=== PATIENT | female | born 1945 | race Caucasian/White ===

== ENCOUNTER 2019-04-28 13:03 | Emergency (ER) | payer MEDICARE, MEDICAID ==
[2019-04-28 13:56] VITALS: BP 147/80
--- NOTE | 2019-04-28 13:58 | EDM.PDOC ---
ED HPI GENERAL MEDICAL PROBLEM - General Chief Complaint: Respiratory Problem Stated Complaint: BREATHING PROBLEMS FOR PAST SEVERAL DAYS Time Seen by Provider: 04/28/19 13:53 Source of Information: Reports: Patient, Family History Limitations: Reports: No Limitations - History of Present Illness INITIAL COMMENTS - FREE TEXT/NARRATIVE: pt arrived feeling tight accross her chest. She has been wheezing. She is bringingup green sputum. She has an inhaler which she has not used tioday. Onset: Gradual, Other (last 2-3 days. ) Duration: Hour(s): Location: Reports: Chest Associated Symptoms: Reports: Cough, Malaise, Shortness of Breath, Other ( chest tightness) - Related Data Allergies Allergy/AdvReac Type Severity Reaction Status Date / Time No Known Allergies Allergy Verified 04/28/19 13:34 Home Meds: Home Meds Albuterol [Ventolin HFA] 2 puff INH ASDIRECTED 04/28/19 [History] Past Medical History HEENT History: Reports: Allergic Rhinitis, Cataract, Sinusitis Respiratory History: Reports: Asthma, Bronchitis, Recurrent, Pneumonia, Recurrent DENTAL TREATMENT COORDINATOR History: Reports: Endometriosis Musculoskeletal History: Reports: Fracture - Infectious Disease History Infectious Disease History: Reports: Chicken Pox, Measles, Mumps - Past Surgical History HEENT Surgical History: Reports: Adenoidectomy, Cataract Surgery, Oral Surgery, Tonsillectomy Other HEENT Surgeries/Procedures: dentures GI Surgical History: Reports: Appendectomy Female Surgical History: Reports: Hysterectomy Musculoskeletal Surgical History: Reports: Other (See Below) Other Musculoskeletal Surgeries/Procedures:: partial left knee replacement Social & Family History - Tobacco Use Smoking Status *Q: Current Every Day Smoker Years of Tobacco use: 56 Packs/Tins Daily: 1 Second Hand Smoke Exposure: No - Caffeine Use Caffeine Use: Reports: Coffee - Recreational Drug Use Recreational Drug Use: No ED ROS GENERAL - Review of Systems Review Of Systems: See Below Constitutional: Reports: Weakness, Other ( chest pressure.) HEENT: Reports: No Symptoms Respiratory: Reports: Shortness of Breath, Wheezing, Cough, Sputum Cardiovascular: Reports: Other (pt is feeling heavy in the chest. ) Endocrine: Reports: No Symptoms GI/Abdominal: Reports: No Symptoms : Reports: No Symptoms Musculoskeletal: Reports: No Symptoms Skin: Reports: No Symptoms Neurological: Reports: No Symptoms Psychiatric: Reports: No Symptoms ED EXAM, GENERAL - Physical Exam Exam: See Below Free Text/Narrative:: pt arrived feeling tight in her chest. She was wheezing. She has felt sob. Sheis raising green sputum. Exam Limited By: No Limitations General Appearance: Alert, Anxious, Moderate Distress, Other (pupils are equal and reactive. ) Ears: Normal TMs Nose: Normal Inspection Throat/Mouth: Normal Inspection Head: Atraumatic Neck: Normal Inspection Respiratory/Chest: Decreased Breath Sounds, Wheezing Cardiovascular: Regular Rate, Rhythm GI/Abdominal: Soft, Non-Tender (Female) Exam: Deferred Rectal (Female) Exam: Deferred Back Exam: Normal Inspection Extremities: Normal Inspection Course - Vital Signs Last Recorded V/S: Last Vital Signs Temp 36.1 C 04/28/19 13:15 Pulse 103 H 04/28/19 13:15 Resp 16 04/28/19 13:15 BP 147/80 H 04/28/19 13:15 Pulse Ox 94 L 04/28/19 13:15 - Orders/Labs/Meds Orders: Active Orders 24 hr Category Date Time Status EKG Documentation Completion [RC] ASDIRECTED Care 04/28/19 13:58 Active RT Aerosol Therapy [RC] ASDIRECTED Care 04/28/19 14:00 Active EKG 12 Lead [EK] Routine Ther 04/28/19 13:58 Ordered Labs: Laboratory Tests 04/28/19 04/28/19 04/28/19 Range/Units 13:49 13:49 13:49 WBC 9.2 (4.5-11.0) K/uL RBC 5.16 (3.30-5.50) M/uL Hgb 15.9 H (12.0-15.0) g/dL Hct 48.0 (36.0-48.0) % MCV 93 (80-98) fL MCH 31 (27-31) pg MCHC 33 (32-36) % Plt Count 181 (150-400) K/uL Neut % (Auto) 45 (36-66) % Lymph % (Auto) 31 (24-44) % [place] % (Auto) 7 H (2-6) % Eos % (Auto) 16 H (2-4) % Baso % (Auto) 1 (0-1) % Sodium 141 (140-148) mmol/L Potassium 4.1 (3.6-5.2) mmol/L Chloride 106 (100-108) mmol/L Carbon Dioxide 27 (21-32) mmol/L Anion Gap 8.1 (5.0-14.0) mmol/L BUN 15 (7-18) mg/dL Creatinine 1.2 H (0.6-1.0) mg/dL Est Cr Clr Drug Dosing TNP Estimated GFR (MDRD) 44 L (>60) Glucose 135 H (74-106) mg/dL Calcium 9.6 (8.5-10.1) mg/dL Total Bilirubin 0.3 (0.2-1.0) mg/dL AST 41 H (15-37) U/L ALT 31 (12-78) U/L Alkaline Phosphatase 92 (46-116) U/L Troponin I < 0.017 (0.000-0.056) ng/mL C-Reactive Protein (0.0-0.3) mg/dL Total Protein 7.1 (6.4-8.2) g/dL Albumin 3.3 L (3.4-5.0) g/dL Globulin 3.8 H (2.3-3.5) g/dL Albumin/Globulin Ratio 0.9 L (1.2-2.2) Urine Color Urine Appearance Urine pH (4.5-8.0) Ur Specific [place] (1.008-1.030) Urine Protein (NEGATIVE) mg/dL Urine Glucose (UA) (NEGATIVE) mg/dL Urine Ketones (NEGATIVE) mg/dL Urine Occult Blood (NEGATIVE) Urine Nitrite (NEGATIVE) Urine Bilirubin (NEGATIVE) Urine Urobilinogen (NORMAL) mg/dL Ur Leukocyte Esterase (NEGATIVE) Urine RBC (0-5) Urine WBC (0-5) Ur Epithelial Cells Amorphous Sediment Urine Bacteria Urine Mucus 04/28/19 04/28/19 Range/Units 14:03 14:05 WBC (4.5-11.0) K/uL RBC (3.30-5.50) M/uL Hgb (12.0-15.0) g/dL Hct (36.0-48.0) % MCV (80-98) fL MCH (27-31) pg MCHC (32-36) % Plt Count (150-400) K/uL Neut % (Auto) (36-66) % Lymph % (Auto) (24-44) % [place] % (Auto) (2-6) % Eos % (Auto) (2-4) % Baso % (Auto) (0-1) % Sodium (140-148) mmol/L Potassium (3.6-5.2) mmol/L Chloride (100-108) mmol/L Carbon Dioxide (21-32) mmol/L Anion Gap (5.0-14.0) mmol/L BUN (7-18) mg/dL Creatinine (0.6-1.0) mg/dL Est Cr Clr Drug Dosing Estimated GFR (MDRD) (>60) Glucose (74-106) mg/dL Calcium (8.5-10.1) mg/dL Total Bilirubin (0.2-1.0) mg/dL AST (15-37) U/L ALT (12-78) U/L Alkaline Phosphatase (46-116) U/L Troponin I (0.000-0.056) ng/mL C-Reactive Protein 0.51 H (0.0-0.3) mg/dL Total Protein (6.4-8.2) g/dL Albumin (3.4-5.0) g/dL Globulin (2.3-3.5) g/dL Albumin/Globulin Ratio (1.2-2.2) Urine Color Yellow Urine Appearance Clear Urine pH 5.0 (4.5-8.0) Ur Specific [place] 1.015 (1.008-1.030) Urine Protein Negative (NEGATIVE) mg/dL Urine Glucose (UA) Normal (NEGATIVE) mg/dL Urine Ketones Negative (NEGATIVE) mg/dL Urine Occult Blood Negative (NEGATIVE) Urine Nitrite Negative (NEGATIVE) Urine Bilirubin Negative (NEGATIVE) Urine Urobilinogen Normal (NORMAL) mg/dL Ur Leukocyte Esterase Negative (NEGATIVE) Urine RBC Not seen (0-5) Urine WBC 0-5 (0-5) Ur Epithelial Cells Few Amorphous Sediment Not seen Urine Bacteria Moderate Urine Mucus Not seen Meds: Medications Discontinued Medications Generic Name Dose Route Start Last Admin Trade Name Freq PRN Reason Stop Dose Admin Albuterol 2.5 mg 04/28/19 14:00 04/28/19 14:45 Proventil Neb Soln NEB 04/28/19 14:01 2.5 mg ONETIME ONE Administration - Re-Assessments/Exams Free Text/Narrative Re-Assessment/Exam: 04/28/19 15:05 wbc is not elevated. She does have alot of eosinophils. Pt does not have a fever. She is raising green sputum. She was given a albuterol neb and the tightness is better and she is less wheezy. Pt was given kenalog 60mg im, her chest xray did not show a pneumonia. [facility] have a neb machine home with her. Departure - Departure Time of Disposition: 15:07 Disposition: Home, Self-Care 01 Condition: Fair Clinical Impression: Bronchitis, Environmental allergies - Discharge Information Referrals: PCP,None [Primary Care Provider] - Forms: ED Department Discharge Care Plan Goals: use albuterol neb q 6h for wheezing, push fluids, zithromax, 500mg now and then 250 for the next 6 days. - My Orders Last 24 Hours: My Active Orders 04/28/19 13:58 EKG Documentation Completion [RC] ASDIRECTED EKG 12 Lead [EK] Routine 04/28/19 14:00 RT Aerosol Therapy [RC] ASDIRECTED - Assessment/Plan Last 24 Hours: My Active Orders 04/28/19 13:58 EKG Documentation Completion [RC] ASDIRECTED EKG 12 Lead [EK] Routine 04/28/19 14:00 RT Aerosol Therapy [RC] ASDIRECTED
[2019-04-28] MEDS ORDERED: Albuterol 0.083% 2.5 MG/3 ML Neb Soln NEB ONE (14:00)
--- NOTE | 2019-04-28 14:24 | CRLCR ---
INDICATION: Shortness of breath. TECHNIQUE: PA and lateral chest. COMPARISON: None. FINDINGS: Clear lungs. Normal heart size and pulmonary vascularity. No congestive heart failure. No pleural effusions. The included skeleton is unremarkable. IMPRESSION: No acute cardiopulmonary process identified. Dictated by Flavio Waggoner MD @ Apr 28 2019 2:21PM Signed by Dr. Flavio Waggoner @ Apr 28 2019 2:21PM
[2019-04-28] MEDS ORDERED: Triamcinolone Acetonide 40 MG/ML 1 ML MDV INJECT ONE (14:59)
== END 2019-04-28 15:19 | disposition home or self-care (01) ==
LOC: JP.ED 13:03
DX: J40 Bronchitis, not specified as acute or chronic (principal); F17.210 Nicotine dependence, cigarettes, uncomplicated; Z91.09 Other allergy status, other than to drugs and biological substances
CPT/HCPCS: 36415; 71046; 80053; 81001; 84484; 85025; 86140; 93005; 93010; 94640; 99285; J3301

== ENCOUNTER 2020-06-14 17:05 | Emergency (ER) | payer MEDICARE, MEDICAID ==
[2020-06-14 18:16] VITALS: BP 132/72; PULSE 85
--- NOTE | 2020-06-14 18:29 | EDM.PDOC ---
ED HPI GENERAL MEDICAL PROBLEM - General Chief Complaint: Allergic Reaction Stated Complaint: ALLERGIC REACTION Time Seen by Provider: 06/14/20 17:10 Source of Information: Reports: Patient, RN Notes Reviewed History Limitations: Reports: No Limitations - History of Present Illness INITIAL COMMENTS - FREE TEXT/NARRATIVE: 75-year-old female presents emergency department a complaint of allergic reaction, she states she is recent diagnosed with a sinus infection was started on Augmentin she has taken amoxicillin and penicillin for several years without difficulty however this is the first time she is ever used Augmentin. She is only taken 1 dose approximately 5 hours after taking the dose she noticed 1 red area on her arm and had an upset stomach. She has not taken any more the medication. At this time she feels her stomach is back to normal no difficulty breathing no difficulty swallowing - Related Data Allergies Allergy/AdvReac Type Severity Reaction Status Date / Time amoxicillin [From Augmentin] AdvReac Abdominal Verified 06/14/20 18:24 Pain clavulanic acid AdvReac Abdominal Verified 06/14/20 18:24 [From Augmentin] Pain Home Meds: Home Meds Albuterol [Ventolin HFA] 2 puff INH ASDIRECTED 04/28/19 [History] Amoxicillin/Clavulanate K [Augmentin 875-125 MG] 1 tab PO BID 06/14/20 [History] Fluticasone Propionate [Flonase] 2 sprays NASBOTH BID PRN 06/14/20 [History] diphenhydrAMINE [Benadryl] 25 mg PO Q6H PRN 06/14/20 [History] Past Medical History HEENT History: Reports: Allergic Rhinitis, Cataract, Sinusitis Respiratory History: Reports: Asthma, Bronchitis, Recurrent, Pneumonia, Recurrent ACADEMY DIRECTOR History: Reports: Endometriosis Musculoskeletal History: Reports: Fracture - Infectious Disease History Infectious Disease History: Reports: Chicken Pox, Measles, Mumps - Past Surgical History HEENT Surgical History: Reports: Adenoidectomy, Cataract Surgery, Oral Surgery, Tonsillectomy Other HEENT Surgeries/Procedures: dentures GI Surgical History: Reports: Appendectomy Female Surgical History: Reports: Hysterectomy Neurological Surgical History: Reports: Laminectomy, Spinal Fusion Musculoskeletal Surgical History: Reports: Other (See Below) Other Musculoskeletal Surgeries/Procedures:: partial left knee replacement Social & Family History - Tobacco Use Smoking Status *Q: Current Every Day Smoker Years of Tobacco use: 60 Packs/Tins Daily: 1 - Caffeine Use Caffeine Use: Reports: Coffee - Recreational Drug Use Recreational Drug Use: No ED ROS ALLERGIC REACTION - Review of Systems Review Of Systems: See Below Constitutional: Reports: No Symptoms HEENT: Reports: No Symptoms Respiratory: Reports: No Symptoms Cardiovascular: Reports: No Symptoms GI/Abdominal: Reports: Abdominal Pain : Reports: No Symptoms Skin: Reports: Urticaria ED EXAM GENERAL NO PERIP PULSE - Physical Exam Exam: See Below Exam Limited By: No Limitations General Appearance: Alert, WD/WN, No Apparent Distress Throat/Mouth: Normal Inspection, Normal Lips, Normal Teeth, Normal Gums, Normal Oropharynx, Normal Voice, No Airway Compromise Neck: Normal Inspection, Supple, Non-Tender, Full Range of Motion Respiratory/Chest: No Respiratory Distress, Lungs Clear, Normal Breath Sounds, No Accessory Muscle Use, Chest Non-Tender Cardiovascular: Regular Rate, Rhythm, No Murmur Skin Exam: Warm, Dry, Intact, Normal Color, No Rash Course - Vital Signs Last Recorded V/S: Last Vital Signs Temp 98.1 F 06/14/20 18:14 Pulse 85 06/14/20 18:14 Resp 18 06/14/20 18:14 BP 132/72 06/14/20 18:14 Pulse Ox 95 06/14/20 18:14 Departure - Departure Time of Disposition: 18:29 Disposition: Home, Self-Care 01 Condition: Fair Clinical Impression: Drug intolerance - Discharge Information Referrals: Vasyl Mora MD [Primary Care Provider] - Additional Instructions: Please follow-up with your primary care provider tomorrow for further evaluation, call return to the emergency department worsening of symptoms, recommend discontinuing the Augmentin Sepsis Event Note (ED) - Evaluation Sepsis Screening Result: No Definite Risk - Focused Exam Vital Signs: Vital Signs Temp Pulse Resp BP Pulse Ox 06/14/20 18:14 98.1 F 85 18 132/72 95 - Assessment/Plan Plan: Assessment Acuity = acute Site and laterality = drug intolerance Etiology = Augmentin Manifestations = upset stomach now resolved Location of injury = Home Lab values = none Plan She will stop the Augmentin she is going contact her primary care tomorrow for further evaluation and possible retreatment she does have a consult set up with [facility] for chronic sinusitis This note was dictated using dragon voice recognition software please call with any questions on syntax or grammar.
== END 2020-06-14 18:38 | disposition home or self-care (01) ==
LOC: JP.ED 17:05
DX: K30 Functional dyspepsia (principal); J45.909 Unspecified asthma, uncomplicated; F17.210 Nicotine dependence, cigarettes, uncomplicated; T36.0X5A Adverse effect of penicillins, initial encounter; Z88.1 Allergy status to other antibiotic agents
CPT/HCPCS: 99283

== ENCOUNTER 2021-01-22 03:08 | Emergency (ER) | payer MEDICARE, MEDICAID ==
[2021-01-22 03:45] VITALS: BP 152/82; PULSE 91
[2021-01-22] MEDS ORDERED: Ketorolac 30 MG/ML SDV IM ONE (03:46)
--- NOTE | 2021-01-22 03:48 | EDM.PDOC ---
ED HPI GENERAL MEDICAL PROBLEM - General Chief Complaint: Lower Extremity Injury/Pain Stated Complaint: R SCIATIA NERVE PAIN Time Seen by Provider: 01/22/21 03:39 Source of Information: Reports: Patient, Old Records, RN Notes Reviewed History Limitations: Reports: No Limitations - History of Present Illness INITIAL COMMENTS - FREE TEXT/NARRATIVE: 75-year-old female presents emergency department day complaint of sciatic nerve pain on the right side, she has a history of chronic sciatica which is usually controlled with anti-inflammatories however the last 3 days she has been having a flareup and it is quite painful pain does shoot from her back down behind her right knee right hip Pain Score (Numeric/FACES): 8 - Related Data Allergies Allergy/AdvReac Type Severity Reaction Status Date / Time amoxicillin [From Augmentin] AdvReac Abdominal Verified 01/22/21 03:36 Pain clavulanic acid AdvReac Abdominal Verified 01/22/21 03:36 [From Augmentin] Pain Home Meds: Home Meds Albuterol [Ventolin HFA] 2 puff INH ASDIRECTED 04/28/19 [History] diphenhydrAMINE [Benadryl] 25 mg PO Q6H PRN 06/14/20 [History] Past Medical History HEENT History: Reports: Allergic Rhinitis, Cataract, Sinusitis Respiratory History: Reports: Asthma, Bronchitis, Recurrent, Pneumonia, Recurrent MANAGER INTENSIVE CARE History: Reports: Endometriosis Musculoskeletal History: Reports: Fracture Neurological History: Reports: Concussion - Infectious Disease History Infectious Disease History: Reports: Chicken Pox, Measles, Mumps - Past Surgical History HEENT Surgical History: Reports: Adenoidectomy, Cataract Surgery, Oral Surgery, Tonsillectomy, Other (See Below) Other HEENT Surgeries/Procedures: dentures. growth removed from sinuses GI Surgical History: Reports: Appendectomy Female Surgical History: Reports: Hysterectomy Neurological Surgical History: Reports: Laminectomy, Spinal Fusion Musculoskeletal Surgical History: Reports: Other (See Below) Other Musculoskeletal Surgeries/Procedures:: partial left knee replacement Social & Family History - Tobacco Use Tobacco Use Status *Q: Current Every Day Tobacco User Years of Tobacco use: 50 Packs/Tins Daily: 1 - Caffeine Use Caffeine Use: Reports: Coffee - Recreational Drug Use Recreational Drug Use: No Review of Systems - Review of Systems Review Of Systems: See Below Musculoskeletal: Reports: Leg Pain ED EXAM, GENERAL - Physical Exam Exam: See Below Exam Limited By: No Limitations General Appearance: Alert, WD/WN, No Apparent Distress Respiratory/Chest: No Respiratory Distress Extremities: Normal Inspection, Normal Range of Motion, Non-Tender, No Pedal Edema Course - Vital Signs Last Recorded V/S: Last Vital Signs Temp 97.7 F 01/22/21 03:45 Pulse 91 01/22/21 03:45 Resp 17 01/22/21 03:45 BP 152/82 H 01/22/21 03:45 Pulse Ox 94 L 01/22/21 03:45 - Orders/Labs/Meds Meds: Medications Discontinued Medications Generic Name Dose Route Start Last Admin Trade Name Jayson PRN Reason Stop Dose Admin Ketorolac Tromethamine 30 mg 01/22/21 03:46 01/22/21 03:53 Ketorolac 30 Mg/Ml Sdv IM 01/22/21 03:47 30 mg ONETIME ONE Administration Departure - Departure Time of Disposition: 04:22 Disposition: Home, Self-Care 01 Condition: Fair Clinical Impression: Right sciatic nerve pain - Discharge Information Instructions: Sciatica, [id number] Referrals: PCP,None [Primary Care Provider] - Forms: ED Department Discharge Additional Instructions: Continue with your regular medications, please followup with your primary care provider in 3-5 days if not better, please call return to the emergency department with worsening of symptoms. Sepsis Event Note (ED) - Evaluation Sepsis Screening Result: No Definite Risk - Focused Exam Vital Signs: Vital Signs Temp Pulse Resp BP Pulse Ox 01/22/21 03:45 97.7 F 91 17 152/82 H 94 L 01/22/21 03:44 97.7 F 91 17 152/82 H 94 L - Assessment/Plan Plan: Assessment Acuity = acute Site and laterality = right sciatic pain Etiology = unknown Manifestations = none Location of injury = Home Lab values = none Plan Good relief Toradol injection follow-up primary care as needed This note was dictated using [employer] voice recognition software please call with any questions on syntax or grammar.
== END 2021-01-22 04:29 | disposition home or self-care (01) ==
LOC: JP.ED 03:08
DX: M54.31 Sciatica, right side (principal); J45.909 Unspecified asthma, uncomplicated; Z72.0 Tobacco use; Z88.0 Allergy status to penicillin; Z88.1 Allergy status to other antibiotic agents
CPT/HCPCS: 96372; 99283; J1885

== ENCOUNTER 2021-08-06 17:05 | Emergency (ER) | payer MEDICARE, MEDICAID ==
--- NOTE | 2021-08-06 18:07 | EDM.PDOC ---
ED HPI GENERAL MEDICAL PROBLEM - General Chief Complaint: General Stated Complaint: PSYATIC NERVE PAIN Time Seen by Provider: 08/06/21 18:07 Source of Information: Reports: Patient, RN Notes Reviewed History Limitations: Reports: No Limitations - History of Present Illness INITIAL COMMENTS - FREE TEXT/NARRATIVE: Anu presents today for complaints of right sciatic pain that has flared for the past 2 weeks. She has tried OTC medications without any improvement. She states the pain is burning and goes from her right hip to the right foot. She denies numbness, tingling of the right leg or foot. She denies any recent injury, trauma, fever, chills, nausea, vomiting, change in bowel/bladder or other concerns. 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 growth removed from sinuses GI Surgical History: Reports: Appendectomy Female Surgical History: Reports: Hysterectomy Neurological Surgical History: Reports: Laminectomy, Spinal Fusion Musculoskeletal Surgical History: Reports: Other (See Below) Other Musculoskeletal Surgeries/Procedures:: partial left knee replacement Social & Family History - Tobacco Use Tobacco Use Status *Q: Current Every Day Tobacco User Years of Tobacco use: 55 Packs/Tins Daily: 1 - Caffeine Use Caffeine Use: Reports: Coffee - Recreational Drug Use Recreational Drug Use: No ED ROS GENERAL - Review of Systems Review Of Systems: See Below Constitutional: Reports: No Symptoms HEENT: Reports: No Symptoms Respiratory: Reports: No Symptoms Cardiovascular: Reports: No Symptoms Endocrine: Reports: No Symptoms GI/Abdominal: Reports: No Symptoms : Reports: No Symptoms Musculoskeletal: Reports: Other (right buttock pain radiating to the right foot, burning. No numbness or tingling. ) Skin: Reports: No Symptoms Neurological: Denies: Difficulty Walking, Weakness, Gait Disturbance Psychiatric: Reports: No Symptoms Hematologic/Lymphatic: Reports: No Symptoms Immunologic: Reports: No Symptoms ED EXAM, GENERAL - Physical Exam Exam: See Below Exam Limited By: No Limitations General Appearance: Alert, WD/WN, No Apparent Distress Head: Atraumatic, Normocephalic Neck: Normal Inspection, Supple, Non-Tender, Full Range of Motion. No: Lymphadenopathy (R), Lymphadenopathy (L) Respiratory/Chest: No Respiratory Distress, Lungs Clear, Normal Breath Sounds, No Accessory Muscle Use, Chest Non-Tender. No: Crackles, Rales, Rhonchi, Wheezing, Stridor Cardiovascular: Normal Peripheral Pulses, Regular Rate, Rhythm, No Edema, No Gallop, No Murmur, No Rub Peripheral Pulses: 4+: Dorsalis Pedis (L), Dorsalis Pedis (R) GI/Abdominal: Normal Bowel Sounds, Soft, Non-Tender, No Organomegaly, No Distention, No Mass, Pelvis Stable. No: Guarding, Rigid, Rebound, Tender Back Exam: Full Range of Motion, Muscle Spasm (upper bilateral trapezius and low lumbar area). No: CVA Tenderness (R), CVA Tenderness (L) Extremities: Normal Inspection, Normal Range of Motion, Non-Tender, No Pedal Edema, Normal Capillary Refill, Leg Pain (right leg) Neurological: Alert, Oriented, CN II-XII Intact, Normal Cognition, Normal Gait, Normal Reflexes, No Motor/Sensory Deficits Psychiatric: Normal Affect, Normal Mood Skin Exam: Warm, Dry, Intact, Normal Color, No Rash Lymphatic: No Adenopathy Course - Vital Signs Last Recorded V/S: Last Vital Signs Temp 36.2 C 08/06/21 17:58 Pulse 82 08/06/21 17:58 Resp 14 08/06/21 17:58 BP 123/62 08/06/21 17:58 Pulse Ox 93 L 08/06/21 17:58 - Orders/Labs/Meds Meds: Medications Discontinued Medications Generic Name Dose Route Start Last Admin Trade Name Freq PRN Reason Stop Dose Admin Ketorolac Tromethamine 30 mg 10/03/21 18:18 08/06/21 18:26 Ketorolac 30 Mg/Ml Sdv IM 08/06/21 18:19 30 mg ONETIME ONE Administration - Re-Assessments/Exams Free Text/Narrative Re-Assessment/Exam: Patient chart reviewed, noted use of toradol for last emergency room visit for sciatica. We will administer toradol 30mg IM. Departure - Departure Time of Disposition: 18:44 Disposition: Home, Self-Care 01 Condition: Good Clinical Impression: Right sided sciatica - Discharge Information *PRESCRIPTION DRUG MONITORING PROGRAM REVIEWED*: Not Applicable *COPY OF PRESCRIPTION DRUG MONITORING REPORT IN PATIENT JAMES: Not Applicable Instructions: Sciatica, [id number] Referrals: Vasyl Mora MD [Primary Care Provider] - Forms: ED Department Discharge Additional Instructions: You have been evaluated and treated for right sciatica from the hip to the right foot. You were given ketorolac 30mg as an IM injection for pain. You can work on stretching, yoga and follow up with your primary for any issues. You can take cyclobenzaprine (flexeril) 5mg by mouth up to three times a day as needed to help with pain. Return for any worsening, issues or concerns. Sepsis Event Note (ED) - Evaluation Sepsis Screening Result: No Definite Risk - Focused Exam Vital Signs: Vital Signs Temp Pulse Resp BP Pulse Ox 08/06/21 17:58 36.2 C 82 14 123/62 93 L 08/06/21 17:53 36.2 C 82 14 123/62 93 L - Assessment/Plan Assessment:: Right sided sciatica Plan: evaluated and treated for right sciatica from the hip to the right foot. You were given ketorolac 30mg as an IM injection for pain. You can work on stretching, yoga and follow up with your primary for any issues. You can take cyclobenzaprine (flexeril) 5mg by mouth up to three times a day as needed to help with pain. Return for any worsening, issues or concerns.
[2021-08-06] MEDS ORDERED: Ketorolac 30 MG/ML SDV IM ONE (18:18)
[2021-08-06 19:51] VITALS: BP 123/62; PULSE 82
== END 2021-08-06 18:47 | disposition home or self-care (01) ==
LOC: JP.ED 17:05
DX: M54.31 Sciatica, right side (principal); J45.909 Unspecified asthma, uncomplicated; Z72.0 Tobacco use; Z88.0 Allergy status to penicillin; Z88.1 Allergy status to other antibiotic agents
CPT/HCPCS: 96372; 99283; J1885

== ENCOUNTER 2021-11-27 09:49 | Inpatient (IN) | payer MEDICARE ==
[2021-11-27] MEDS ORDERED: Albuterol 8 GM Inhaler INH ONE (10:09)
[2021-11-27] MEDS ORDERED: methylPREDNISolone Sodium Succinate 125 MG/2 ML SDV IVPUSH ONE (10:09)
[2021-11-27] MEDS ORDERED: Magnesium Sulfate/Water 2 GM in Premix Bag 1 BAG IV ONE (10:10)
[2021-11-27] MEDS ORDERED: Morphine 2 MG/ML SYRINGE IVPUSH ONE (10:15)
[2021-11-27] MEDS ORDERED: LORazepam 2 MG/ML SDV IVPUSH ONE (11:42)
[2021-11-27 11:44] LABS: CORONAVIRUS COVID-19 NAA POSITIVE (NEGATIVE)
[2021-11-27] MEDS ORDERED: REMDESIVIR 200 MG in Sodium Chloride 0.9% 250 ML IV ONE (11:49)
[2021-11-27] MEDS: Sodium Chloride 0.9% 500 ML IV ONE ×2 (12:05→18:30)
[2021-11-27] MEDS ORDERED: Sodium Chloride 0.9% 100 ML IV SCH (12:15)
[2021-11-27] MEDS ORDERED: Iopamidol 755 Mg/ML 100 ML Bottle IV SCH (12:15)
[2021-11-27] MEDS ORDERED: Albuterol 8 GM Inhaler INH PRN (15:27)
[2021-11-27] MEDS ORDERED: Ondansetron 4 MG/2 ML SDV IV PRN (16:33)
[2021-11-27] MEDS ORDERED: Magnesium Hydroxide 400 MG/5 ML Susp 30 ML Cup PO PRN (16:33)
[2021-11-27] MEDS ORDERED: Ondansetron 4 MG Tab.DIS PO PRN (16:33)
[2021-11-27] MEDS ORDERED: LORazepam 2 MG/ML SDV IVPUSH PRN (16:33)
[2021-11-27] MEDS ORDERED: Morphine 2 MG/ML SYRINGE IVPUSH PRN (16:33)
[2021-11-27] MEDS ORDERED: Acetaminophen 325 MG Tab PO PRN (16:33)
[2021-11-27] MEDS: Enoxaparin 40 MG/0.4 ML Syringe SUBCUT SCH (18:31)
[2021-11-27] MEDS: Dexamethasone 4 MG/ML SDV IVPUSH SCH (20:12)
[2021-11-27] MEDS: Cholecalciferol (Vitamin D3) 25 MCG Tab PO SCH (20:15)
[2021-11-27] MEDS: guaiFENesin 600 MG Tab.ER PO SCH (20:15)
[2021-11-27] MEDS: Ascorbic Acid 500 MG Tab PO SCH (20:15)
[2021-11-27] MEDS: Melatonin 3 MG Tab PO PRN (21:22)
[2021-11-28] MEDS: guaiFENesin/Dextromethorphan 100-10 MG/5 ML Soln 10 ML Cup PO PRN ×4 (00:13→20:52)
[2021-11-28] MEDS: Benzonatate 100 MG Cap PO PRN ×4 (00:13→20:55)
[2021-11-28] MEDS: Enoxaparin 40 MG/0.4 ML Syringe SUBCUT SCH ×2 (05:49→17:38)
[2021-11-28] MEDS: Zinc Sulfate 220 MG Cap PO SCH (08:18)
[2021-11-28] MEDS: Ascorbic Acid 500 MG Tab PO SCH ×2 (08:18→20:49)
[2021-11-28] MEDS: guaiFENesin 600 MG Tab.ER PO SCH ×2 (08:18→20:48)
[2021-11-28] MEDS: Cholecalciferol (Vitamin D3) 25 MCG Tab PO SCH ×2 (08:18→20:49)
[2021-11-28] MEDS ORDERED: 50% Dextrose in Water 50 ML Syringe IVPUSH PRN (11:36)
[2021-11-28] MEDS ORDERED: Insulin Lispro 100 Unit/ML 3 ML KwikPen SUBCUT ONE (11:36)
[2021-11-28] MEDS ORDERED: Glucagon,Human Recombinant 1 MG Vial IM PRN (11:36)
[2021-11-28] MEDS: Insulin Lispro 100 Unit/ML 3 ML KwikPen SUBCUT SCH ×3 (11:39→21:08)
[2021-11-28] MEDS: LORazepam 0.5 MG Tab PO PRN (16:08)
[2021-11-28] MEDS: Dexamethasone 4 MG/ML SDV IVPUSH SCH (20:47)
[2021-11-28] MEDS: Melatonin 3 MG Tab PO PRN (20:54)
[2021-11-29] MEDS: Enoxaparin 40 MG/0.4 ML Syringe SUBCUT SCH ×2 (05:30→18:47)
[2021-11-29 06:20] LABS: HEMOGLOBIN A1C 10.1 % (4.5-6.2)
[2021-11-29] MEDS: Zinc Sulfate 220 MG Cap PO SCH (08:43)
[2021-11-29] MEDS: guaiFENesin 600 MG Tab.ER PO SCH ×2 (08:43→20:23)
[2021-11-29] MEDS: Cholecalciferol (Vitamin D3) 25 MCG Tab PO SCH ×2 (08:43→20:23)
[2021-11-29] MEDS: Insulin Lispro 100 Unit/ML 3 ML KwikPen SUBCUT SCH ×4 (08:44→21:16)
[2021-11-29] MEDS: Ascorbic Acid 500 MG Tab PO SCH ×2 (08:44→20:22)
[2021-11-29] MEDS: Nicotine 21 MG/24 Hr Patch TRDERM SCH (09:55)
[2021-11-29] MEDS: Benzonatate 100 MG Cap PO PRN ×2 (10:42→18:47)
[2021-11-29] MEDS: LORazepam 0.5 MG Tab PO PRN ×3 (10:42→23:20)
[2021-11-29] MEDS: guaiFENesin/Dextromethorphan 100-10 MG/5 ML Soln 10 ML Cup PO PRN ×2 (10:42→18:48)
[2021-11-29] MEDS: Dexamethasone 4 MG/ML SDV IVPUSH SCH (20:22)
[2021-11-29] MEDS: Melatonin 3 MG Tab PO PRN (20:23)
[2021-11-30] MEDS: Enoxaparin 40 MG/0.4 ML Syringe SUBCUT SCH ×2 (05:13→17:07)
[2021-11-30] MEDS: Insulin Lispro 100 Unit/ML 3 ML KwikPen SUBCUT SCH ×4 (07:44→21:15)
[2021-11-30] MEDS: guaiFENesin 600 MG Tab.ER PO SCH ×2 (08:49→21:55)
[2021-11-30] MEDS: Zinc Sulfate 220 MG Cap PO SCH (08:49)
[2021-11-30] MEDS: Cholecalciferol (Vitamin D3) 25 MCG Tab PO SCH ×2 (08:50→21:54)
[2021-11-30] MEDS: Nicotine 21 MG/24 Hr Patch TRDERM SCH (08:50)
[2021-11-30] MEDS: LORazepam 0.5 MG Tab PO PRN ×2 (08:50→20:06)
[2021-11-30] MEDS: Ascorbic Acid 500 MG Tab PO SCH ×2 (08:50→21:54)
[2021-11-30] MEDS ORDERED: Zolpidem 5 MG Tab PO PRN (11:24)
[2021-11-30] MEDS: metFORMIN 500 MG Tab PO SCH ×2 (11:55→17:07)
[2021-11-30] MEDS: glipiZIDE 5 MG Tab PO SCH ×2 (11:55→17:07)
[2021-11-30] MEDS: Benzonatate 100 MG Cap PO PRN (21:54)
[2021-11-30] MEDS: guaiFENesin/Dextromethorphan 100-10 MG/5 ML Soln 10 ML Cup PO PRN (21:54)
[2021-11-30] MEDS: Melatonin 3 MG Tab PO PRN (21:54)
[2021-11-30] MEDS: Dexamethasone 4 MG/ML SDV IVPUSH SCH (21:55)
[2021-12-01] MEDS: LORazepam 0.5 MG Tab PO PRN ×3 (00:49→19:58)
[2021-12-01] MEDS: Enoxaparin 40 MG/0.4 ML Syringe SUBCUT SCH ×2 (05:51→17:00)
[2021-12-01] MEDS: glipiZIDE 5 MG Tab PO SCH ×2 (08:18→16:59)
[2021-12-01] MEDS: Zinc Sulfate 220 MG Cap PO SCH (08:18)
[2021-12-01] MEDS: Ascorbic Acid 500 MG Tab PO SCH ×2 (08:18→21:29)
[2021-12-01] MEDS: Insulin Lispro 100 Unit/ML 3 ML KwikPen SUBCUT SCH ×4 (08:19→21:26)
[2021-12-01] MEDS: Cholecalciferol (Vitamin D3) 25 MCG Tab PO SCH ×2 (08:19→21:29)
[2021-12-01] MEDS: guaiFENesin 600 MG Tab.ER PO SCH ×2 (08:19→21:29)
[2021-12-01] MEDS: metFORMIN 500 MG Tab PO SCH ×2 (08:19→16:59)
[2021-12-01] MEDS: Nicotine 21 MG/24 Hr Patch TRDERM SCH (08:19)
[2021-12-01] MEDS: ALPRAZolam 0.25 MG Tab PO PRN (12:37)
[2021-12-01] MEDS: Melatonin 3 MG Tab PO PRN (21:29)
[2021-12-01] MEDS: Benzonatate 100 MG Cap PO PRN (21:29)
[2021-12-01] MEDS: Dexamethasone 4 MG/ML SDV IVPUSH SCH (21:30)
[2021-12-01] MEDS: guaiFENesin/Dextromethorphan 100-10 MG/5 ML Soln 10 ML Cup PO PRN (21:30)
[2021-12-02] MEDS: LORazepam 0.5 MG Tab PO PRN ×5 (00:42→20:48)
[2021-12-02] MEDS: Enoxaparin 40 MG/0.4 ML Syringe SUBCUT SCH ×2 (05:04→17:47)
[2021-12-02] MEDS: Insulin Lispro 100 Unit/ML 3 ML KwikPen SUBCUT SCH ×4 (07:54→21:07)
[2021-12-02] MEDS: metFORMIN 500 MG Tab PO SCH ×2 (08:35→16:34)
[2021-12-02] MEDS: guaiFENesin 600 MG Tab.ER PO SCH ×2 (08:35→20:51)
[2021-12-02] MEDS: Zinc Sulfate 220 MG Cap PO SCH (08:35)
[2021-12-02] MEDS: Ascorbic Acid 500 MG Tab PO SCH ×2 (08:35→20:52)
[2021-12-02] MEDS: Cholecalciferol (Vitamin D3) 25 MCG Tab PO SCH ×2 (08:35→20:51)
[2021-12-02] MEDS: glipiZIDE 5 MG Tab PO SCH ×2 (08:35→16:34)
[2021-12-02] MEDS: Nicotine 21 MG/24 Hr Patch TRDERM SCH (08:36)
[2021-12-02] MEDS ORDERED: Benzocaine/Cetylpyridinium/Menthol Lozenge MUCMEM PRN (11:45)
[2021-12-02] MEDS: guaiFENesin/Dextromethorphan 100-10 MG/5 ML Soln 10 ML Cup PO PRN ×2 (12:28→20:53)
[2021-12-02] MEDS: Benzonatate 100 MG Cap PO PRN (20:48)
[2021-12-02] MEDS: Melatonin 3 MG Tab PO PRN (20:49)
[2021-12-02] MEDS: Dexamethasone 2 MG Tab PO SCH (20:52)
[2021-12-03] MEDS: Enoxaparin 40 MG/0.4 ML Syringe SUBCUT SCH ×2 (06:14→18:07)
[2021-12-03] MEDS ORDERED: Insulin Lispro 100 Unit/ML 3 ML KwikPen SUBCUT ONE (08:00)
[2021-12-03] MEDS: ALPRAZolam 0.25 MG Tab PO PRN (08:03)
[2021-12-03] MEDS: glipiZIDE 5 MG Tab PO SCH ×2 (08:05→18:07)
[2021-12-03] MEDS: metFORMIN 500 MG Tab PO SCH ×2 (08:05→18:07)
[2021-12-03] MEDS: Zinc Sulfate 220 MG Cap PO SCH (08:05)
[2021-12-03] MEDS: Cholecalciferol (Vitamin D3) 25 MCG Tab PO SCH ×2 (08:05→21:22)
[2021-12-03] MEDS: Ascorbic Acid 500 MG Tab PO SCH ×2 (08:05→21:22)
[2021-12-03] MEDS: guaiFENesin 600 MG Tab.ER PO SCH ×2 (08:05→21:22)
[2021-12-03] MEDS: Nicotine 21 MG/24 Hr Patch TRDERM SCH (08:06)
[2021-12-03] MEDS: Insulin Lispro 100 Unit/ML 3 ML KwikPen SUBCUT SCH ×4 (08:28→21:08)
[2021-12-03] MEDS: LORazepam 0.5 MG Tab PO PRN ×2 (13:06→21:23)
[2021-12-03] MEDS: Dexamethasone 2 MG Tab PO SCH (21:22)
[2021-12-03] MEDS: Benzonatate 100 MG Cap PO PRN (21:22)
[2021-12-03] MEDS: Melatonin 3 MG Tab PO PRN (21:23)
[2021-12-03] MEDS: guaiFENesin/Dextromethorphan 100-10 MG/5 ML Soln 10 ML Cup PO PRN (21:23)
[2021-12-04] MEDS: LORazepam 0.5 MG Tab PO PRN ×3 (04:11→20:32)
[2021-12-04] MEDS: Enoxaparin 40 MG/0.4 ML Syringe SUBCUT SCH ×2 (05:11→17:14)
[2021-12-04] MEDS: Insulin Lispro 100 Unit/ML 3 ML KwikPen SUBCUT SCH ×4 (07:59→22:21)
[2021-12-04] MEDS: metFORMIN 500 MG Tab PO SCH ×2 (08:53→17:14)
[2021-12-04] MEDS: glipiZIDE 5 MG Tab PO SCH (08:53)
[2021-12-04] MEDS: Cholecalciferol (Vitamin D3) 25 MCG Tab PO SCH ×2 (08:53→20:32)
[2021-12-04] MEDS: guaiFENesin 600 MG Tab.ER PO SCH ×2 (08:53→20:32)
[2021-12-04] MEDS: Ascorbic Acid 500 MG Tab PO SCH ×2 (08:53→20:32)
[2021-12-04] MEDS: Nicotine 21 MG/24 Hr Patch TRDERM SCH (08:53)
[2021-12-04] MEDS: Zinc Sulfate 220 MG Cap PO SCH (08:54)
[2021-12-04] MEDS: Benzonatate 100 MG Cap PO PRN (11:57)
[2021-12-04] MEDS: Nystatin Topical Powder 15 GM Bottle TOP SCH ×2 (15:36→22:20)
[2021-12-04] MEDS: guaiFENesin/Dextromethorphan 100-10 MG/5 ML Soln 10 ML Cup PO PRN (17:14)
[2021-12-04] MEDS: Dexamethasone 2 MG Tab PO SCH (20:32)
[2021-12-05] MEDS: Nystatin Topical Powder 15 GM Bottle TOP SCH ×4 (06:39→22:18)
[2021-12-05] MEDS: Enoxaparin 40 MG/0.4 ML Syringe SUBCUT SCH ×2 (06:39→17:18)
[2021-12-05] MEDS: metFORMIN 500 MG Tab PO SCH ×2 (08:16→17:18)
[2021-12-05] MEDS: guaiFENesin 600 MG Tab.ER PO SCH ×2 (08:16→20:45)
[2021-12-05] MEDS: Ascorbic Acid 500 MG Tab PO SCH ×2 (08:16→20:45)
[2021-12-05] MEDS: Zinc Sulfate 220 MG Cap PO SCH (08:16)
[2021-12-05] MEDS: Cholecalciferol (Vitamin D3) 25 MCG Tab PO SCH ×2 (08:16→20:45)
[2021-12-05] MEDS: Nicotine 21 MG/24 Hr Patch TRDERM SCH (08:17)
[2021-12-05] MEDS: Insulin Lispro 100 Unit/ML 3 ML KwikPen SUBCUT SCH ×4 (08:18→22:18)
[2021-12-05] MEDS ORDERED: Sodium Polystyrene Sulfonate 15 GM/60 ML Susp 60 ML Bot PO ONE (09:00)
[2021-12-05] MEDS: LORazepam 0.5 MG Tab PO PRN (11:06)
[2021-12-05] MEDS ORDERED: LORazepam 0.5 MG Tab PO PRN (12:30)
[2021-12-05] MEDS ORDERED: diphenhydrAMINE 25 MG Cap PO PRN (12:30)
[2021-12-05] MEDS: LORazepam 1 MG Tab PO PRN (14:55)
[2021-12-05] MEDS: guaiFENesin/Dextromethorphan 100-10 MG/5 ML Soln 10 ML Cup PO PRN ×2 (14:56→22:18)
[2021-12-05] MEDS: Dexamethasone 2 MG Tab PO SCH (20:45)
[2021-12-06] MEDS: Melatonin 3 MG Tab PO PRN (01:05)
[2021-12-06] MEDS: LORazepam 1 MG Tab PO PRN (01:05)
[2021-12-06] MEDS: Enoxaparin 40 MG/0.4 ML Syringe SUBCUT SCH (06:25)
[2021-12-06] MEDS: Insulin Lispro 100 Unit/ML 3 ML KwikPen SUBCUT SCH ×2 (08:37→12:22)
[2021-12-06] MEDS: Ascorbic Acid 500 MG Tab PO SCH (08:41)
[2021-12-06] MEDS: guaiFENesin 600 MG Tab.ER PO SCH (08:41)
[2021-12-06] MEDS: Nystatin Topical Powder 15 GM Bottle TOP SCH ×3 (08:41→10:15)
[2021-12-06] MEDS: Cholecalciferol (Vitamin D3) 25 MCG Tab PO SCH (08:41)
[2021-12-06] MEDS: Zinc Sulfate 220 MG Cap PO SCH (08:41)
[2021-12-06] MEDS: metFORMIN 500 MG Tab PO SCH (08:41)
[2021-12-06] MEDS: Nicotine 21 MG/24 Hr Patch TRDERM SCH (08:42)
[2021-12-06 08:47] VITALS: BP 96/46; PULSE 60
== END 2021-12-06 12:35 | disposition home or self-care (01) | DRG 177 ==
LOC: JP.ED 09:49 → JP.2SS 15:17 → JP.SDSSCHI 16:15 → JP.2SS 16:30
PROVIDERS: ADMIT Internal Medicine; ATTEND Hospitalist
PROC: 8E0ZXY6 Isolation (ICD-10-PCS; principal; 2021-11-27)
PROC: 3E0333Z Introduction of Anti-inflammatory into Peripheral Vein, Percutaneous Approach (ICD-10-PCS; 2021-11-27)
PROC: XW033E5 Introduction of Remdesivir Anti-infective into Peripheral Vein, Percutaneous Approach, New Technology Group 5 (ICD-10-PCS; 2021-11-27)
PROC: 3E0DX3Z Introduction of Anti-inflammatory into Mouth and Pharynx, External Approach (ICD-10-PCS; 2021-12-02)
DX: U07.1 COVID-19 (principal); J12.82 Pneumonia due to coronavirus disease 2019; J96.01 Acute respiratory failure with hypoxia; R09.02 Hypoxemia; J45.901 Unspecified asthma with (acute) exacerbation; Z96.652 Presence of left artificial knee joint; Z66 Do not resuscitate; Z88.6 Allergy status to analgesic agent; Z88.1 Allergy status to other antibiotic agents; Z88.0 Allergy status to penicillin; Z90.49 Acquired absence of other specified parts of digestive tract; Z90.710 Acquired absence of both cervix and uterus; Z98.49 Cataract extraction status, unspecified eye; Z87.891 Personal history of nicotine dependence; Z88.8 Allergy status to other drugs, medicaments and biological substances; Z79.899 Other long term (current) drug therapy
CPT/HCPCS: 0241U; 36415; 36600; 71045; 71275; 80048; 80053; 82803; 82947; 83036; 84132; 84145; 85025; 85027; 85379; 86140; 93005; 93010; 94640; 94762; 96365; 96366; 96367; 96375; 99285; A9270-GY; J1100; J1650; J1815; J2060; J2270; J2930; J3475; J7040; J7050; J8540; Q9967

== ENCOUNTER 2022-08-25 07:50 | Emergency (ER) | payer MEDICARE ==
[2022-08-25 08:16] VITALS: BP 141/74; PULSE 75
[2022-08-25] MEDS: Ketorolac 30 MG/ML SDV IM ONE (09:03)
== END 2022-08-25 09:10 | disposition home or self-care (01) ==
LOC: JP.ED 07:50
DX: S39.012A Strain of muscle, fascia and tendon of lower back, initial encounter (principal); J45.909 Unspecified asthma, uncomplicated; Z72.0 Tobacco use; Z88.0 Allergy status to penicillin; Z88.1 Allergy status to other antibiotic agents; Z88.6 Allergy status to analgesic agent; Z88.8 Allergy status to other drugs, medicaments and biological substances; Z86.16 Personal history of COVID-19; Z90.49 Acquired absence of other specified parts of digestive tract; Z90.710 Acquired absence of both cervix and uterus; W01.0XXA Fall on same level from slipping, tripping and stumbling without subsequent striking against object, initial encounter
CPT/HCPCS: 96372; 99283; J1885

== ENCOUNTER 2022-09-01 10:19 | Emergency (ER) | payer MEDICARE ==
[2022-09-01 10:38] VITALS: BP 126/76; PULSE 120
[2022-09-01] MEDS ORDERED: HYDROmorphone 1 MG/ML Syringe IM ONE (10:51)
== END 2022-09-01 11:24 | disposition home or self-care (01) ==
LOC: JP.ED 10:19
DX: G89.29 Other chronic pain (principal); M54.41 Lumbago with sciatica, right side; F17.210 Nicotine dependence, cigarettes, uncomplicated; Z88.0 Allergy status to penicillin; Z88.1 Allergy status to other antibiotic agents; Z88.6 Allergy status to analgesic agent; Z88.8 Allergy status to other drugs, medicaments and biological substances; Z79.899 Other long term (current) drug therapy; Z86.16 Personal history of COVID-19; Z90.49 Acquired absence of other specified parts of digestive tract; Z90.710 Acquired absence of both cervix and uterus
CPT/HCPCS: 96372; 99283; J1170

== ENCOUNTER 2022-10-26 11:15 | Emergency (ER) | payer MEDICARE ==
[2022-10-26] MEDS ORDERED: Triamcinolone Acetonide 40 MG/ML 1 ML SDV INJECT ONE ×2 (13:58→13:59)
[2022-10-26] MEDS ORDERED: Lidocaine 1% 5 ML VIAL INJECT ONE (13:59)
[2022-10-26] MEDS ORDERED: Triamcinolone Acetonide 40 MG/ML 1 ML SDV ONE (14:12)
== END 2022-10-26 15:22 | disposition home or self-care (01) ==
LOC: JP.ED 11:15
DX: M18.12 Unilateral primary osteoarthritis of first carpometacarpal joint, left hand (principal); M75.101 Unspecified rotator cuff tear or rupture of right shoulder, not specified as traumatic; M25.512 Pain in left shoulder; M79.645 Pain in left finger(s); F17.210 Nicotine dependence, cigarettes, uncomplicated; Z88.0 Allergy status to penicillin; Z88.1 Allergy status to other antibiotic agents; Z88.8 Allergy status to other drugs, medicaments and biological substances
CPT/HCPCS: 73130; 99283; J3301

== ENCOUNTER 2022-12-29 21:53 | Emergency (ER) | payer MEDICARE ==
[2022-12-29 22:07] VITALS: BP 148/89; PULSE 116
[2022-12-29] MEDS ORDERED: Ketorolac 30 MG/ML SDV IM ONE (22:24)
[2022-12-29] MEDS ORDERED: Methocarbamol 500 MG Tab PO ONE (23:26)
== END 2022-12-29 23:56 | disposition home or self-care (01) ==
LOC: JP.ED 21:53
DX: K59.01 Slow transit constipation (principal); M54.50 Low back pain, unspecified; G89.29 Other chronic pain; J45.909 Unspecified asthma, uncomplicated; Z88.8 Allergy status to other drugs, medicaments and biological substances; Z88.0 Allergy status to penicillin; Z88.1 Allergy status to other antibiotic agents; Z88.6 Allergy status to analgesic agent; Z88.5 Allergy status to narcotic agent; Z79.899 Other long term (current) drug therapy
CPT/HCPCS: 72100; 74019; 81001; 96372; 99283; A9270; J1885

== ENCOUNTER 2023-02-09 20:17 | Emergency (ER) | payer MEDICARE ==
[2023-02-09 20:28] VITALS: BP 147/77; PULSE 119
[2023-02-09] MEDS ORDERED: diphenhydrAMINE 25 MG Cap PO ONE (21:00)
[2023-02-09] MEDS ORDERED: predniSONE 20 MG Tab PO ONE (21:00)
[2023-02-09] MEDS ORDERED: Ketorolac 30 MG/ML SDV IM ONE (21:01)
== END 2023-02-09 21:45 | disposition home or self-care (01) ==
LOC: JP.ED 20:17
DX: M54.50 Low back pain, unspecified (principal); T50.995A Adverse effect of other drugs, medicaments and biological substances, initial encounter; G89.29 Other chronic pain; E11.9 Type 2 diabetes mellitus without complications; J45.909 Unspecified asthma, uncomplicated; Z86.16 Personal history of COVID-19; Z88.0 Allergy status to penicillin; Z88.1 Allergy status to other antibiotic agents; Z88.5 Allergy status to narcotic agent; Z88.8 Allergy status to other drugs, medicaments and biological substances; Z79.84 Long term (current) use of oral hypoglycemic drugs; Z72.0 Tobacco use
CPT/HCPCS: 96372; 99282; A9270; J1885; J7512

== ENCOUNTER 2023-06-17 10:53 | Emergency (ER) | payer MEDICARE ==
[2023-06-17] MEDS ORDERED: Ketorolac 30 MG/ML SDV IM ONE (11:24)
[2023-06-17 14:03] VITALS: BP 138/83; PULSE 130
== END 2023-06-17 12:18 | disposition home or self-care (01) ==
LOC: JP.ED 10:53
DX: M54.50 Low back pain, unspecified (principal); G89.29 Other chronic pain; E11.9 Type 2 diabetes mellitus without complications; J45.909 Unspecified asthma, uncomplicated; Z88.0 Allergy status to penicillin; Z88.5 Allergy status to narcotic agent; Z88.8 Allergy status to other drugs, medicaments and biological substances; Z72.0 Tobacco use
CPT/HCPCS: 96372; 99283; J1885

== ENCOUNTER 2023-09-15 20:36 | Emergency (ER) | payer MEDICARE ==
[2023-09-16 00:09] VITALS: BP 139/66; PULSE 84
== END 2023-09-16 00:07 | disposition home or self-care (01) ==
LOC: JP.ED 20:36
DX: K59.01 Slow transit constipation (principal); J45.909 Unspecified asthma, uncomplicated; E11.9 Type 2 diabetes mellitus without complications; Z86.16 Personal history of COVID-19; Z88.0 Allergy status to penicillin; Z88.1 Allergy status to other antibiotic agents; Z88.6 Allergy status to analgesic agent
CPT/HCPCS: 74018; 74018-26; 99283; 99284

== ENCOUNTER 2023-09-17 18:57 | Emergency (ER) | payer MEDICARE ==
[2023-09-17 20:12] VITALS: BP 140/79; PULSE 91
[2023-09-17] MEDS ORDERED: Sodium Phosphate,Monobasic/Sodium Phosphate,Dibasic Enema 133 ML Bottle RECTAL ONE (20:12)
[2023-09-17] MEDS ORDERED: Ketorolac 30 MG/ML SDV IM ONE (20:12)
[2023-09-17] MEDS ORDERED: Mineral Oil 133 ML BOTTLE RECTAL ONE (23:11)
[2023-09-17] MEDS ORDERED: Magnesium Citrate Solution 296 ML Bottle PO ONE (23:13)
== END 2023-09-18 00:16 | disposition home or self-care (01) ==
LOC: JP.ED 18:57
DX: K59.00 Constipation, unspecified (principal); J45.909 Unspecified asthma, uncomplicated; E11.9 Type 2 diabetes mellitus without complications; Z86.16 Personal history of COVID-19; Z88.0 Allergy status to penicillin; Z88.1 Allergy status to other antibiotic agents; Z88.6 Allergy status to analgesic agent; Z88.5 Allergy status to narcotic agent
CPT/HCPCS: 74018; 74018-26; 96372; 99283; 99284; A9270-GY; J1885

== ENCOUNTER 2023-09-19 02:13 | Emergency (ER) | payer MEDICARE ==
[2023-09-19 02:40] VITALS: BP 135/72; PULSE 87
[2023-09-19 03:39] LABS: BASOPHILS ABSOLUTE AUTO 0.03 K/uL (0.00-0.10); BASOPHILS PERCENT AUTO 0.5 % (0.1-1.3); EOSINOPHILS ABSOLUTE AUTO 0.21 K/uL (0.00-0.40); EOSINOPHILS PERCENT AUTO 3.3 % (0.0-5.4); HEMATOCRIT 41.8 % (34.3-46.0); HEMOGLOBIN 14.3 g/dL (11.2-15.5); IMMATURE GRAN PERCENT AUTO 0.3 % (0.0-0.7); LYMPHOCYTES ABSOLUTE AUTO 2.06 K/uL (0.8-3.3); LYMPHOCYTES PERCENT AUTO 32.1 % (11.4-47.7); MEAN CORPUSCULAR HGB CONC 34.2 g/dL (31.6-35.5); MEAN CORPUSCULAR VOLUME 90.7 fL (81.4-99.0); MONOCYTES ABSOLUTE AUTO 0.63 K/uL (0.20-0.90); MONOCYTES PERCENT AUTO 9.8 % (3.3-12.6); NEUTROPHILS ABSOLUTE AUTO 3.47 K/uL (1.0-7.6); PLATELET COUNT,PLT 203 K/uL (130-375); RED BLOOD CELL COUNT 4.61 M/uL (3.77-5.24); WHITE BLOOD CELL COUNT,WBC 6.4 K/uL (3.2-11.0)
[2023-09-19 03:40] LABS: IMMATURE GRAN ABSOLUTE AUTO 0.02 K/uL (0.00-0.23)
[2023-09-19 03:57] LABS: C-REACTIVE PROTEIN 0.53 mg/dL (0.0-0.3); CREATININE 1.3 mg/dL (0.6-1.0); EST CRCL DRUG DOSING (CG) 27.35 mL/min; POTASSIUM,K 4.4 mmol/L (3.6-5.2)
[2023-09-19 03:58] LABS: ANION GAP 13.4 mmol/L (5.0-14.0)
[2023-09-19 04:01] LABS: A/G RATIO 0.9 (1.2-2.2); ALBUMIN 3.5 g/dL (3.4-5.0); BILIRUBIN DIRECT 0.12 mg/dL (0.0-0.2); BILIRUBIN INDIRECT 0.28; BILIRUBIN TOTAL 0.4 mg/dL (0.2-1.0); PROTEIN TOTAL,TP 7.4 g/dL (6.4-8.2)
== END 2023-09-19 05:58 | disposition home or self-care (01) ==
LOC: JP.ED 02:13
DX: C50.911 Malignant neoplasm of unspecified site of right female breast (principal); J45.909 Unspecified asthma, uncomplicated; E11.9 Type 2 diabetes mellitus without complications; F17.210 Nicotine dependence, cigarettes, uncomplicated; Z86.16 Personal history of COVID-19; Z88.0 Allergy status to penicillin; Z88.1 Allergy status to other antibiotic agents; Z88.6 Allergy status to analgesic agent; Z88.5 Allergy status to narcotic agent; Z88.8 Allergy status to other drugs, medicaments and biological substances
CPT/HCPCS: 36415; 74176; 80048; 80076; 85025; 86140; 99284; 99285

== ENCOUNTER 2023-11-15 14:26 | Inpatient (IN) | payer MEDICARE, OTHER ==
[2023-11-15] MEDS ORDERED: Acetaminophen 325 MG Tab PO PRN (14:48)
[2023-11-15] MEDS ORDERED: Acetaminophen 650 MG Supp RECTAL PRN (14:48)
[2023-11-15] MEDS ORDERED: Ondansetron 4 MG Tab.DIS PO PRN (14:48)
[2023-11-15] MEDS: Haloperidol Lactate 2 MG/ML Oral Soln 15 ML Bottle PO PRN (15:49)
[2023-11-15] MEDS: Morphine 10 MG/0.5 ML Oral Syringe PO PRN ×4 (16:06→22:23)
[2023-11-15] MEDS: LORazepam ORAL Concentrate 1MG/0.5ML U/D PO PRN ×2 (17:24→21:51)
[2023-11-15] MEDS: Methadone Oral Concentrate 10 MG/1 ML U/D Cup PO SCH (21:08)
[2023-11-15 22:39] LABS: INFLUENZA A NAA NEGATIVE (NEGATIVE); INFLUENZA B NAA NEGATIVE (NEGATIVE); RESPIRATORY SYNCYTIAL VIR NAA NEGATIVE (NEGATIVE)
[2023-11-15 22:52] LABS: CORONAVIRUS COVID-19 NAA POSITIVE (NEGATIVE)
[2023-11-16] MEDS: Morphine 10 MG/0.5 ML Oral Syringe PO PRN ×9 (04:59→22:15)
[2023-11-16] MEDS: Haloperidol Lactate 2 MG/ML Oral Soln 15 ML Bottle PO PRN (08:11)
[2023-11-16] MEDS: LORazepam ORAL Concentrate 1MG/0.5ML U/D PO PRN ×2 (09:08→17:34)
[2023-11-16] MEDS: Methadone Oral Concentrate 10 MG/1 ML U/D Cup PO SCH ×2 (09:08→17:33)
[2023-11-16] MEDS ORDERED: Haloperidol Lactate 2 MG/ML Oral Soln 15 ML Bottle PO PRN (11:05)
[2023-11-16] MEDS: Haloperidol Lactate 2 MG/ML Oral Soln 15 ML Bottle PO SCH ×3 (12:57→20:04)
[2023-11-17] MEDS: Haloperidol Lactate 2 MG/ML Oral Soln 15 ML Bottle PO SCH ×5 (00:41→16:31)
[2023-11-17] MEDS: Methadone Oral Concentrate 10 MG/1 ML U/D Cup PO SCH ×3 (00:42→17:22)
[2023-11-17] MEDS: Morphine 10 MG/0.5 ML Oral Syringe PO PRN ×8 (04:34→20:37)
[2023-11-17] MEDS: LORazepam ORAL Concentrate 1MG/0.5ML U/D PO PRN ×3 (08:12→18:33)
[2023-11-17 11:45] VITALS: BP 129/51; PULSE 118
[2023-11-17] MEDS: Atropine Sulfate 1% Ophth 2 ML Drops SL PRN ×2 (17:43→21:29)
[2023-11-17] MEDS ORDERED: LORazepam ORAL Concentrate 1MG/0.5ML U/D PO PRN (20:33)
== END 2023-11-17 21:45 | disposition expired | DRG 951 ==
LOC: JP.MS 14:26
PROVIDERS: ADMIT Internal Medicine; ATTEND Hospitalist
DX: Z51.5 Encounter for palliative care (principal); J45.909 Unspecified asthma, uncomplicated; G89.29 Other chronic pain; M54.9 Dorsalgia, unspecified; F41.9 Anxiety disorder, unspecified; Z66 Do not resuscitate; E11.9 Type 2 diabetes mellitus without complications; Z96.659 Presence of unspecified artificial knee joint; C50.911 Malignant neoplasm of unspecified site of right female breast; Z98.49 Cataract extraction status, unspecified eye; Z75.5 Holiday relief care; Z79.51 Long term (current) use of inhaled steroids; Z79.899 Other long term (current) drug therapy; Z90.710 Acquired absence of both cervix and uterus; Z74.01 Bed confinement status; Z88.0 Allergy status to penicillin; Z88.8 Allergy status to other drugs, medicaments and biological substances; Z90.89 Acquired absence of other organs; Z90.49 Acquired absence of other specified parts of digestive tract
CPT/HCPCS: 0241U; A9270-GY